=== PATIENT | female | born 1965 | race Caucasian/White ===

== ENCOUNTER → 2022-03-12 | Outpatient (CLI) | payer OTHER, SELFPAY ==
--- NOTE | 2022-03-12 14:54 | NEURO ---
NCS and/or EMG Patient Report Ordering Doctor: tSas Gonzalez DATE OF SERVICE: 03/12/22 Rudy presents for electrodiagnostic testing of the left upper limb. He reports difficulty controlling his hand at times and has problems with dexterity. He denies numbness or pain. Electrodiagnostic findings: Left median motor nerve demonstrates normal distal latency and amplitude with borderline reduced conduction velocity. Normal left ulnar motor response. Normal median ulnar F waves. Sensory responses are within normal limits On needle EMG, all muscles tested in the left upper limb as well as the left cervical paraspinals showed no evidence of denervation with normal motor unit action potentials. Electrodiagnostic impression: This is a normal electrodiagnostic study of the left upper limb. There is no electrodiagnostic evidence for peripheral neuropathy, including carpal tunnel or cubital tunnel syndrome. There is no electrodiagnostic evidence for cervical radiculopathy.
== END | disposition home or self-care (01) ==
LOC: PSN 13:41
PROVIDERS: PCP Family Medicine; Referring Provider Family Medicine; Visit Provider Family Medicine
DX: R29.898 Other symptoms and signs involving the musculoskeletal system (principal)
CPT/HCPCS: 95886; 95910